=== PATIENT | female | born 1940 | race Caucasian/White ===

== ENCOUNTER 2023-03-02 14:27 | Outpatient (REF) | payer MEDICARE, SELFPAY ==
--- NOTE | ~2023-03-02 | US_ITS ---
EXAMINATION: US VENOUS ULTRASOUND WITH DOPPLER LOWER EXTREMITY, BILATERAL CLINICAL INFORMATION: Swelling and pain COMPARISON: None available. TECHNIQUE: Ultrasound of the deep veins is performed from the hip to the calf with compression sonography and color and pulse Doppler assessment. Spectral analysis with color-flow imaging is performed. FINDINGS: RIGHT: There is normal venous compression and respiratory variation and augmented flow. The visualized common femoral vein, superficial femoral vein, profunda femoral vein, popliteal vein, and the trifurcation region shows no evidence of deep venous thrombosis. There is a 6.1 x 1.2 x 3.3 cm Barksdale's cyst. LEFT: There is normal venous compression and respiratory variation and augmented flow. The visualized common femoral vein, superficial femoral vein, profunda femoral vein, popliteal vein, and the trifurcation region shows no evidence of deep venous thrombosis. There is no significant popliteal fossa cyst. . US/US venous duplex LE BI IMPRESSION: No DVT demonstrated in the bilateral lower extremity. Right Barksdale's cyst.
== END 2023-03-02 14:28 | disposition home or self-care (01) ==
LOC: HO.US 14:27
PROVIDERS: Visit Provider Internal Medicine
DX: M79.662 Pain in left lower leg (principal); M79.661 Pain in right lower leg; M79.89 Other specified soft tissue disorders
CPT/HCPCS: 93970

== ENCOUNTER 2024-07-18 08:17 | Outpatient (AMB) | payer MEDICARE, SELFPAY ==
--- NOTE | 2024-07-18 08:27 | MHC.OFFVIS ---
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 She has been referred with question of palpitations/dizziness. Patient states she has been dizzy for a while. Goes back more than a year. She is on blood pressure medications but she believes they are more recent. According to her, the dizziness has been present before she even took any blood pressure medications. Somewhat orthostatic in description. No syncopal episodes. She believes the problem is more from her knees which makes activities difficult. Otherwise, she has had a recent Holter that shows some atrial ectopy but unclear how much she actually feels these. No documented atrial fibrillation. No angina or shortness of breath. No previous history of coronary disease or myocardial infarction or cardiomyopathy. [facility] Medical History (Updated 07/18/24 @ 09:01 by Roque Stone MD) Hyperlipidemia, unspecified Essential hypertension Family History (Updated 07/18/24 @ 08:34 by Nikky Washington CMA) Father Heart problem Social History (Updated 07/18/24 @ 08:34 by Nikky Washington CMA) Alcohol intake: current Comment: rare Patient Tobacco Use Status: Former Tobacco user Review of Systems Const Denies chills, Denies daytime sleepiness, Denies fatigue, Denies fever(s), Denies poor appetite, Denies snoring, Denies stops breathing during sleep, Denies weakness, Denies weight gain and Denies weight loss Eyes Denies loss of vision ENT Denies dizziness and Denies hearing loss Card Denies chest pain, Denies irregular heart rhythm, Denies claudication, Denies leg edema, Denies lightheadedness, Denies palpitations, Reports dyspnea on exertion and Denies orthopnea Resp Denies cough, Denies excessive phlegm production, Reports dyspnea on exertion, Denies snoring and Denies wheezing GI Denies abdominal pain, Denies hematochezia, Denies change in bowel habits, Denies nausea and Denies vomiting Denies urinary frequency and Denies dysuria Musc Denies arthralgias, Denies muscle weakness, Denies numbness and Denies other Skin/Breast Denies nail changes and Denies rash Neuro Denies Abnormal speech present, Denies dizziness, Denies loss of vision, Denies memory loss, Denies numbness and Denies weakness Psych Denies depression and Denies memory loss Endo Denies fatigue and Denies palpitations Jevon/Lymph Denies easy bruising Aller/Immun Denies wheezing Physical Exam Vital Signs: Last Vital Signs Pulse 67 07/18/24 08:29 BP 140/70 H 07/18/24 08:29 BMI result Body Mass Index 26.2 Const General: comfortable and no acute distress Orientation/consciousness: patient oriented x3 HEENT Other: Unremarkable Head: Yes normal to inspection Neck Neck: Yes normal visual inspection Chest Chest palpation & inspection: normal inspection of the chest Resp Auscultation: clear to auscultation bilaterally Cardio Palpation: normal PMI Heart sounds: S1 normal heart sound present, S2 normal heart sound present, no gallops, no murmurs and no rubs GI Palpation (GI): Soft to palpation Back/Spine/Pelvis Other: unremarkable Skin General skin exam: no rashes or lesions noted Neuro General: patient oriented x3 Speech: No Abnormal speech present Extrem Other: Trace ankle edema. General: Yes normal to inspection Psych Mental Status: mental status grossly normal Office Procedures EKG Details: EKG with underlying sinus rhythm at 67/Min; no significant ST-T changes and otherwise unremarkable[place] [id number], Complete Assessment & Plan Assessment & Plan (1) Dizziness: Code(s): R42 - Dizziness and giddiness Category: Medical (2) Atrial arrhythmia: Code(s): I49.8 - Other specified cardiac arrhythmias Category: Medical (3) Essential hypertension: Code(s): I10 - Essential (primary) hypertension Category: Medical Plan Overall, history of hypertension, possibly orthostatic dizziness, supraventricular ectopy on Holter. Per patient, dizziness precedes any medications for hypertension. Will need to get the PCP note for review. She has very slight ankle swelling but may be able to possibly stop the furosemide as that might exacerbate dizziness in patients in her age group. Otherwise, obtain an echocardiogram for cardiac function and also carotid ultrasound. Follow-up after the above. Orders: Orders CA echo transthoracic complete Today I49.8 - Other specified cardiac arrhythmias US carotid duplex BI Today I65.23 - Occlusion and stenosis of bilateral carotid arteries Coding Level of Care Code New Pt Level 3 (68211) Diagnoses Dizziness R42 Atrial arrhythmia I49.8 Essential hypertension I10 CPT Codes EKG - CPT: 78818-[id number], Complete ([id number])
[2024-07-18 08:29] VITALS: BP 140/70; PULSE 67; BMI 26.2
== END 2024-07-18 08:55 | disposition home or self-care (01) ==
PROVIDERS: PCP Nurse Practitioner Family; Visit Provider Internal Medicine
DX: R42 Dizziness and giddiness (principal); I49.8 Other specified cardiac arrhythmias; I10 Essential (primary) hypertension
CPT/HCPCS: 93010; 99203

== ENCOUNTER → 2024-07-18 08:17 | Outpatient (BNVA) | payer MEDICARE, SELFPAY | PROVIDERS: PCP Nurse Practitioner Family; Visit Provider Internal Medicine | DX: I49.8 Other specified cardiac arrhythmias (principal); I65.23 Occlusion and stenosis of bilateral carotid arteries; I10 Essential (primary) hypertension; R42 Dizziness and giddiness | CPT/HCPCS: 93005; 99202 ==

== ENCOUNTER → 2024-10-20 08:47 | Outpatient (REF) | payer MEDICARE, SELFPAY ==
--- NOTE | ~2024-10-20 | US_ITS ---
EXAMINATION: US EXTRACRANIAL CAROTID DUPLEX, BILATERAL CLINICAL INFORMATION: Bilateral carotid artery stenoses COMPARISON: None TECHNIQUE: Real-time ultrasound and Doppler techniques (integrating B-mode 2-D vascular images, Doppler spectral analysis and color-flow Doppler imaging) were utilized to interrogate the extracranial carotid arteries, the vertebral arteries and proximal subclavian arteries bilaterally. The degree of stenosis is determined by criteria similar to NASCET. FINDINGS: Right Side: 1. There is mild atherosclerotic plaque seen in the bifurcation/proximal ICA region. 2. The common carotid artery PSV proximally is 66 cm/s and distally 61 cm/s. 3. The proximal internal carotid artery velocities are 63 cm/s systolic and 17 cm/s diastolic. 4. The proximal external carotid artery PSV is 75 cm/s. 5. The vertebral artery shows antegrade flow. 6. The subclavian artery waveforms are normal. Left Side: 1. There is mild atherosclerotic plaque seen in the bifurcation/proximal ICA region. 2. The common carotid artery PSV proximally is 83 cm/s and distally 63 cm/s. 3. The proximal internal carotid artery velocities are 69 cm/s systolic and 18 cm/s diastolic. 4. The proximal external carotid artery PSV is 73 cm/s. 5. The vertebral artery shows antegrade flow. 6. The subclavian artery waveforms are normal. US/US carotid duplex BI IMPRESSION: 1. RIGHT: Minimal, non-hemodynamically significant stenosis of the proximal right internal carotid artery corresponding to a 0-49% stenosis by velocity criteria. 2. LEFT: Minimal, non-hemodynamically significant stenosis of the proximal left internal carotid artery corresponding to a 0-49% stenosis by velocity criteria. Electronically signed by: Christopher Acuña MD 10/20/2024 11:30 PM EST
--- NOTE | 2024-10-20 08:58 | CA_ITS ---
Transthoracic Echocardiogram Patient (Last, First, Middle): Shonda Oneal, Gender: Female Date of : 1940 Age: 84 Procedure Date: 10/20/2024 Procedure Type: Transthoracic Echocardiogram Location: OP Height: 160.02 cm Weight: 67.13 kg BSA: 1.70 m2 Heart Rate: bpm BP: 140 / 70 mmHg Soft Metals Engraver Hand: CHRISTOPHER Referring MD: Roque Stone MD Symptoms: I49.8 - Other specified cardiac arrhythmias Study Quality: Adequate ECG Rhythm: Sinus Conclusions: - The left ventricular systolic function is normal. The calculated ejection fraction is 60% by biplane method. - No obvious valvular pathology seen on this study. Findings Left Ventricle Normal left ventricular cavity size. The left ventricular systolic function is normal. The calculated ejection fraction is 60% by biplane method. There is no evidence of regional wall motion abnormalities. Diastolic function is normal for age. There is mild septal and mild basal asymmetric hypertrophy. Right Ventricle Normal right ventricular cavity size and systolic function. Atria Both atria are normal in size. Aortic Valve There is a normal trileaflet aortic valve. There is no aortic valve stenosis. There is no aortic valve regurgitation. Mitral Valve The mitral valve appears normal. There is trace mitral valve regurgitation. There is no mitral valve stenosis. Pulmonic Valve The pulmonic valve is likely normal. There is trace pulmonic valve regurgitation. Tricuspid Valve Normal tricuspid valve structure. There is mild tricuspid valve regurgitation. There is no evidence of pulmonary hypertension. Great Vessels The asc aorta is normal in size. Moderate plaque is seen in the sino tubular ridge. Venous The inferior vena cava is normal in size and collapses greater than 50% with inspiration. Pericardium/Pleural There is no evidence of pericardial effusion. Prior Study Comparison No prior study available for comparison. Recommendations, Care & Conclusions No obvious valvular pathology seen on this study. Measurements 2D Linear Measurements IVSd: 0.71 0.6-0.9/0.6-1.0 cm LVIDd: 4.42 3.9-5.3/4.2-5.9 cm LVIDd Index: 2.60 2.4-3.2/2.2-3.1 cm/m2 LVIDs: 2.71 2.0-3.6 cm LVPWd: 0.82 0.7-1.1 cm LA Diam: 3.50 2.7-3.8/3.0-4.0 cm LAIDs Index: 2.06 1.5-2.3 cm/m2 LV Mass: 129.49 67-162/88-224 g LV Mass Index: 76.17 43-95/49-115 g/m2 LVOT Diam: 2.20 3.0+(-)1.3 cm 2D Systolic Function EF 4C: 57.30 >55% EF 2C: 64.00 >55% EF BiP: 60.00 >55% Mitral Valve MV Pk E: 0.91 MV PK A: 1.14 MV Decel Time: 219.00 E/A: 0.80 E'Lateral: 6.31 E'Medial: 8.49 E/E' Med: 10.80 E/E' Lat: 14.50 PHT: 64.00 MVA PHT: 3.44 Decel [place]: 4.16 Aortic Valve AoV Pk Babatunde: 1.27 AoV Mn Babatunde: 0.81 AoV VTI: 0.28 AoV Pk Grad: 6.00 Aov Mn Grad: 3.00 SAW Cont.VTI: 3.21 LVOT LVOT Pk Babatunde: 1.02 LVOT Mn Bab[place]unde: 0.67 LVOT VTI: 0.23 LVOT Pk Grad: 4.00 LVOT Mn Grad: 2.00 LVOT Diam: 2.20 LVOT Area: 3.80 Diastolic Function MV Pk E: 0.91 MV Pk A: 1.14 E/A: 0.80 E'Medial: 8.49 E/E' Med: 10.80 E' Laterial: 6.31 E/E' Lat: 14.50 Right Ventricle TAPSE (mm): 25.70 TVS' Babatunde: 13.40 Tricuspid Valve TR Pk Babatunde: 2.14 TR Pk Grad: 18.00 Great Vessels Aorta Sinus of Valsalva: 3.81 2.0-3.5 cm Ao Asc: 3.10 2.1-3.4 cm Updated in Other Vendor System with Status of Final Roque Stone MD electronically signed on 10/22/2024 1:38:18 PM with status of Final
--- OUTSIDE RECORDS SUMMARY | 2024-10-20 09:07 | XMS_ITS ---
Author Organization [facility] Address [address] [place] [address] Care Team Providers Care Master Merchandiser Name Role Phone Everton Lee Unavailable [phone] REASON FOR VISIT ORIENTOR Encounters Encounter Location Date Provider Diagnosis [address] [address] 07/19/2024 Everton Lee Plan Of Treatment No Information Progress Notes * Zeinab ONEALeDOB:[birth year] (84 yo F)Acc No.[id number]:07/19/2024 Patient:?Shonda Oneal :1940???Age:84 Y???Sex:Female Address: [place] [address] * true * Date:? Generated for Maria Antoniai haily/Santiago/eTransmitting on:?10/20/2024 09:07 AM EST
--- OUTSIDE RECORDS SUMMARY | 2024-10-20 09:07 | XMS_ITS ---
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 Generated for Maria Antoniai haily/Santiago/eTransmitting on:?10/20/2024 09:06 AM EST
--- OUTSIDE RECORDS SUMMARY | 2024-10-20 09:07 | XMS_ITS | Patient Health Record ---
Author Organization [facility] Address [address] [place] [address] Care Team Providers Care Infrastructure Solutions Architect Name Role Phone Everton Lee Unavailable [phone] Reason For Referral No Information Encounters Encounter Location Date Provider Diagnosis [facility] [address] [place] [address] 07/19/2024 Everton Lee [facility] [address] [place] [address] 10/03/2024 Everton Lee Plan Of Treatment No Information Insurance Providers Payer Name Payer Address Payer Phone Subscriber Number Group Number Insured Name Patient Relationship to Insured Coverage Start Date Coverage End Date Medicare [facility] [address] [place] [address] [phone] Shonda Oneal Self - patient is the insured [facility] Others [address] [place] [address] [phone] Shonda Oneal Self - patient is the insured
== END ==
LOC: HO.CARD 08:47
PROVIDERS: PCP Internal Medicine; Visit Provider Internal Medicine
DX: I65.23 Occlusion and stenosis of bilateral carotid arteries (principal); I49.8 Other specified cardiac arrhythmias
CPT/HCPCS: 93306; 93880

== ENCOUNTER → 2024-10-20 08:58 | Outpatient (BNV) | payer MEDICARE, SELFPAY | PROVIDERS: PCP Internal Medicine; Visit Provider Internal Medicine | DX: I42.2 Other hypertrophic cardiomyopathy (principal); I36.1 Nonrheumatic tricuspid (valve) insufficiency | CPT/HCPCS: 93306 ==

== ENCOUNTER 2024-11-03 14:33 | Outpatient (AMB) | payer MEDICARE, SELFPAY ==
[2024-11-03 14:53] VITALS: BP 136/64; PULSE 84; BMI 26.3
--- NOTE | 2024-11-03 14:53 | A.OFFVIS_ITS ---
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 Accompanied by: Self / Same As Patient Allergies No Known Allergies Allergy (Verified 07/18/24 08:30) Medication List - Last Reconciled 11/03/24 by Naomi Montelongo NP-C acetaminophen ER (Tylenol Arthritis Pain) 650 mg PO Q12H amlodipine 2.5 mg PO DAILY atorvastatin 20 mg PO DAILY diphenhydramine-acetaminophen 25-500 mg (Tylenol PM Extra Strength) 2 tabs PO BEDTIME PRN furosemide 20 mg PO DAILY levothyroxine 88 mcg PO DAILY metoprolol succinate ER 25 mg PO DAILY HPI HPI f/u Echo/carotid: Details: Shonda is an 84-year-old female with past medical history of hypertension and hyperlipidemia who was recently evaluated for dizziness and underwent an echocardiogram and carotid ultrasound. She now presents for follow-up. Today she reports that she has been feeling better since her last visit in July. She no longer has issues with dizziness. She now believes it was from her medications but now she is used to them. She has no chest discomfort at rest or with activity. No shortness of breath, PND, orthopnea or edema. No presyncope, syncope, falls. She mostly does only light activities which she tolerates well. [facility] Medical History (Updated 11/03/24 @ 16:05 by Naomi Montelongo, ROLA-C) Hyperlipidemia, unspecified Essential hypertension Family History Father Heart problem Social History Alcohol intake: current Comment: rare Patient Tobacco Use Status: Former Tobacco user Review of Systems Const All systems reviewed & are unremarkable except as noted in HPI and below Denies chills, Denies fatigue, Denies fever(s), Denies weight gain and Denies weight loss ENT Denies dizziness Card Denies chest pain, Denies leg edema, Denies lightheadedness, Denies palpitations, Denies dyspnea on exertion, Denies orthopnea and Denies other Resp Denies cough and Denies dyspnea on exertion GI Denies hematochezia and Denies change in stool character Musc Denies abnormal gait, Denies muscle weakness, Denies numbness, Denies radiating pain into limb and Denies tingling Neuro Denies abnormal gait, Denies dizziness, Denies numbness and Denies tingling Endo Denies fatigue and Denies palpitations Physical Exam Vital Signs: Last Vital Signs Pulse 84 11/03/24 14:53 BP 136/64 11/03/24 14:53 BMI result Body Mass Index 26.3 Const General: cooperative, healthy appearing, comfortable and no acute distress Orientation/consciousness: patient oriented x3 Neck Neck: Yes normal visual inspection Resp Effort & Inspection: normal respiratory effort Auscultation: clear to auscultation bilaterally, no crackles, no rales, no rhonchi and no wheezes Cardio Jugular venous distension: no JVD Rate: regular rate Rhythm: regular rhythm Heart sounds: S1 normal heart sound present, S2 normal heart sound present, no murmurs and no rubs Neuro General: patient oriented x3 Extrem General: Yes normal to inspection, No no pedal edema and No calf tenderness Psych Appearance: grossly normal Mental Status: mental status grossly normal Speech and movement: Normal speech and movement present Assessment & Plan Assessment & Plan (1) Dizziness: Code(s): R42 - Dizziness and giddiness Category: Medical Plan: Prior reports of dizziness and some heart palpitations. A Holter monitor was done on 03/31/2024 for nearly 7 days showing sinus rhythm with average heart rate 69, brief NSVT episodes, longest 9.6 seconds. EKG done 07/18/2024 showing normal sinus rhythm, rate 67. An echocardiogram was done 10/20/2024 showing EF 60%, no valve abnormalities, mild septal and mild basal asymmetric hypertrophy. A carotid ultrasound was done 10/20/2024 showing right and left ICA each 0-49% stenosis. All test results reviewed with her in detail. She denies any heart palpitations. She tells me her dizziness has resolved. She believes the dizziness may have been a side effect from her medications that eventually wore off. Her blood pressure today is normal range, 136/64. No medication changes made today. She can continue to follow with her PCP. Cardiology follow-up p.r.n.. She is agreeable to this plan. (2) Essential hypertension: Code(s): I10 - Essential (primary) hypertension Category: Medical Plan: Adequately controlled at present. No med changes made. (3) Carotid stenosis: Code(s): I65.29 - Occlusion and stenosis of unspecified carotid artery Category: Medical Plan: Minimal carotid stenosis bilaterally. Carotid ultrasound as above. Continue statin therapy. (4) Hyperlipidemia, unspecified: Code(s): E78.5 - Hyperlipidemia, unspecified Category: Medical Plan: [place] LDL goal less than 100. Labs are followed by her PCP. Continue atorvastatin. (5) Atrial arrhythmia: Code(s): I49.8 - Other specified cardiac arrhythmias Category: Medical Plan: Brief SVT/atrial tach noted on last Holter monitor. She is on metoprolol XL 25 mg daily. She is not noticing any concerning heart palpitations. Her echocardiogram shows a normal EF. Continue current treatment. If needed her metoprolol dose could be increased if warranted. Plan Time spent on chart review, documentation, interviewed assessment Coding Level of Care Code Est Pt Level 4 (82223) Complex EM visit Add On G2211 Diagnoses Dizziness R42 Essential hypertension I10 Carotid stenosis I65.29 Hyperlipidemia, unspecified E78.5 Atrial arrhythmia I49.8 Time Spent (min) 28
--- OUTSIDE RECORDS SUMMARY | 2024-11-03 16:01 | XMS_ITS ---
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 Generated for Maria Antoniai haily/Santiago/eTransmitting on:?11/03/2024 04:01 PM EST
--- OUTSIDE RECORDS SUMMARY | 2024-11-03 16:01 | XMS_ITS ---
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 Generated for Maria Antoniai haily/Santiago/eTransmitting on:?11/03/2024 04:01 PM EST
--- OUTSIDE RECORDS SUMMARY | 2024-11-03 16:02 | XMS_ITS | Patient Health Record ---
Author Organization [facility] Address [address] [place] [address] Care Team Providers Care Bindery Chief Name Role Phone Everton Lee Unavailable [phone] Reason For Referral No Information Encounters Encounter Location Date Provider Diagnosis [facility] [address] [place] [address] 07/19/2024 Everton Lee [facility] [address] [place] [address] 10/03/2024 Everton Lee Plan Of Treatment No Information Insurance Providers Payer Name Payer Address Payer Phone Subscriber Number Group Number Insured Name Patient Relationship to Insured Coverage Start Date Coverage End Date Medicare [facility] [address] [place] [address] [id number] [phone] Shonda Oneal Self - patient is the insured [facility] Others [address] [place] [address] [phone] Shonda Oneal Self - patient is the insured
== END 2024-11-03 15:10 | disposition home or self-care (01) ==
PROVIDERS: PCP Internal Medicine; Visit Provider Nurse Practitioner Family
DX: R42 Dizziness and giddiness (principal); I10 Essential (primary) hypertension; I65.29 Occlusion and stenosis of unspecified carotid artery; E78.5 Hyperlipidemia, unspecified; I49.8 Other specified cardiac arrhythmias
CPT/HCPCS: 99214; G2211

== ENCOUNTER → 2024-11-03 14:33 | Outpatient (BNVA) | payer MEDICARE, SELFPAY | PROVIDERS: PCP Internal Medicine; Visit Provider Nurse Practitioner Family | DX: R42 Dizziness and giddiness (principal); I10 Essential (primary) hypertension; I65.29 Occlusion and stenosis of unspecified carotid artery; I49.8 Other specified cardiac arrhythmias; E78.5 Hyperlipidemia, unspecified | CPT/HCPCS: 99212 ==